=== PATIENT | female | born 1960 | race Caucasian/White ===

== ENCOUNTER → 2018-01-06 07:00 | Emergency (ER) | payer MEDICARE ==
[2018-01-06 07:09] VITALS: BP 151/104
== END | disposition left against medical advice (07) ==
LOC: ED 07:00
DX: R07.9 Chest pain, unspecified (principal); Z53.21 Procedure and treatment not carried out due to patient leaving prior to being seen by health care provider

== ENCOUNTER 2018-01-19 19:53 | Emergency (ER) | payer MEDICARE ==
--- NOTE | 2018-01-19 20:37 | ED ---
Complex/Multi-Sys Presentation - HPI Summary HPI Summary: This is scribe Trevor Attebranjith documenting for attending Irvin Cleveland MD. Patient is a 57 y/o F presents to ED c/o abd pain with concerns related to dehydration and temperature regulation. Pain is rated a 7/10 and located in her epigastric region. Assoc. Sx: nausea, decreased PO intake, chills, fever. Patient reports being seen at [facility] for 18 hours yesterday. She reports that she had very low potassium levels that they spent her visit replacing her potassium levels. Patient says that she was informed of possibly having CA in her stomach. She was then discharged with instructions to f/u with her PCP on 01/23. She presents to the ED because she could not wait until the for relief. PMHx: Cardiomyopathy. She was admitted to hospice care in 2007 for 13 months for treatment of cardiomyopathy. I, Dr. Cleveland, personally performed the services described in this documentation as scribed in my presence and it is both accurate and complete. - History Of Current Complaint Chief Complaint: EDGeneral Time Seen by Provider: 01/19/18 20:14 Hx Obtained From: Patient Onset/Duration: Gradual Onset, Lasting Weeks Timing: Constant Severity Currently: Moderate Associated Signs And Symptoms: Positive: Nausea, Decreased Oral Intake - Allergies/Home Medications Allergies/Adverse Reactions: Allergies Allergy/AdvReac Type Severity Reaction Status Date / Time carbamazepine [From Tegretol] Allergy Unknown Verified 01/19/18 20:08 Reaction Details codeine Allergy Unknown Verified 01/19/18 20:08 Reaction Details nitrofurantoin Allergy Unknown Verified 01/19/18 20:08 [From Macrobid] Reaction Details PMH/Surg Hx/FS Hx/Imm Hx Endocrine/Hematology History: Denies: Hx Diabetes Cardiovascular History: Denies: Hx Coronary Artery Disease, Hx Hypertension Infectious Disease History: No Infectious Disease History: Denies: Traveled Outside the [place] in Last 30 Days - Family History Known Family History: Negative: Cardiac Disease, Hypertension, Diabetes - Social History Occupation: Disabled Lives: With Family Review of Systems Positive: Fever, Chills, Other - POS: decreased PO intake Positive: Nausea All Other Systems Reviewed And Are Negative: Yes Physical Exam - Summary Physical Exam Summary: Appearance: Well appearing, no pain distress Skin: warm, dry, reflects adequate perfusion Head/face: normal Eyes: EOMI, JESSIE ENT: normal Neck: supple, non-tender Respiratory: CTA, breath sounds present Cardiovascular: RRR, pulses symmetrical. 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 Abdomen: non-tender, soft Bowel Sounds: present Musculoskeletal: normal, strength/ROM intact Neuro: normal, sensory motor intact, A&Ox3 Triage Information Reviewed: Yes Vital Signs On Initial Exam: Initial Vitals Temp Pulse Resp BP Pulse Ox 97.3 F 86 20 128/56 97 01/19/18 20:03 01/19/18 20:03 01/19/18 20:03 01/19/18 20:03 01/19/18 20:03 Vital Signs Reviewed: Yes Diagnostics - Vital Signs Vital Signs Temp Pulse Resp BP Pulse Ox 01/19/18 20:03 97.3 F 86 20 128/56 97 - Laboratory Result Diagrams: 01/19/18 20:42 01/19/18 20:42 Lab Statement: Any lab studies that have been ordered have been reviewed, and results considered in the medical decision making process. Complex Multi-Symp Course/Dx Course Of Treatment: I obtained records from [facility]. The patient does have a history of mental health issues. She's had presentations here where she wished to sign in and then left before even being triaged. Her potassium is normal today. She has follow-up pending with her primary care physician. She has no new complaints today. Her speech is still pressured but she appears to be taking her medications as prescribed. She follows with cardiology here as well as primary care. - Diagnoses Provider Diagnoses: Bipolar disorder, History of hypokalemia, History of cardiomyopathy Discharge - Sign-Out/Discharge Documenting (check all that apply): Patient Departure - Discharge Plan Condition: Stable Disposition: HOME Patient Education Materials: Hypokalemia (ED) Referrals: Jose Mccullough MD [Primary Care Provider] - Additional Instructions: Continue your medications as prescribed. Call first thing Sunday morning to follow closely with her primary care physician. You will need further evaluation for your complex medical conditions. Return if worse, fever, new symptoms or other concerns as discussed. - Billing Disposition and Condition Condition: STABLE Disposition: Home Attestations Scribe Attestation: I, Dr. Cleveland personally performed the services described in this documentation as scribed in my presence and it is both accurate and complete. User Type: Provider
[2018-01-19 20:56] LABS: ABS Basophils 0.1 10^3/ul (0-0.2); ABS Eosinophils 0.1 10^3/ul (0-0.6); ABS Lymphocytes 2.1 10^3/ul (1.0-4.8); ABS Monocytes 0.9 10^3/ul (0-0.8); ABS Nucleated RBC 0 10^3/ul; Eosinophil % 0.8 % (0-6); Hematocrit 36 % (35-47); Hemoglobin 12.3 g/dl (12.0-16.0); Lymphocyte % 18.5 % (25-47); Mean Corpuscular HGB Conc 34 g/dl (31-36); Mean Corpuscular Hemoglobin 32 pg (27-31); Mean Corpuscular Volume 94 fL (80-97); Mean Platelet Volume 11.2 um3 (7.4-10.4); Nucleated Red Blood Cells % 0.1; Platelet Count 210 10^3/ul (150-450); Red Blood Count 3.85 10^6/ul (4.00-5.40); Red Cell Distribution Width 13 % (10.5-15); White Blood Count 11.1 10^3/ul (3.5-10.8)
[2018-01-19 21:05] LABS: EGFR Non-African American 64.2 (>60)
[2018-01-19 21:24] VITALS: BP 118/71
== END 2018-01-19 21:24 | disposition home or self-care (01) ==
LOC: ED 19:53
DX: F31.9 Bipolar disorder, unspecified (principal); I42.9 Cardiomyopathy, unspecified; Z86.2 Personal history of diseases of the blood and blood-forming organs and certain disorders involving the immune mechanism; Z88.8 Allergy status to other drugs, medicaments and biological substances; Z88.5 Allergy status to narcotic agent
CPT/HCPCS: 36415; 80053; 85025; 99282